=== PATIENT | male | born 1955 | race African-American/Black ===

== ENCOUNTER 2024-01-25 04:09 | Emergency (ER) | payer MEDICARE, MEDICAID ==
[~2024-01-25] VITALS: Ht 175.3 cm; Wt 127.0 kg
[~2024-01-25 04:09] MED LIST: ALBU6.7H15 INH; AMLODIPINE; ATENOLOL; AZIT500T8 PO; FAMO-135 MT; Folic Acid PO; LISI10TA26; MAG355OR21 MT; METF-415; Multivitamins,Ther W-Minerals PO
[2024-01-25] MEDS: GUAIFENESIN 600MG ER TABLET PO SCH (06:29)
[2024-01-25] MEDS ORDERED: GUAI600T44 MT (08:03)
[2024-01-25 08:41] VITALS: PULSE 95; RESP 20; O2SAT 97
[2024-01-25] MEDS: ALBUTEROL (0.083%) 2.5MG/3ML NEB HHN STA (08:41)
[2024-01-25 08:51] VITALS: BP 154/94; PULSE 101; RESP 20; TEMP 98.1
== END 2024-01-25 08:53 | disposition home or self-care (01) ==
LOC: ER 04:09
DX: R05.8 Other specified cough (principal); E11.9 Type 2 diabetes mellitus without complications; I12.0 Hypertensive chronic kidney disease with stage 5 chronic kidney disease or end stage renal disease; N18.6 End stage renal disease
CPT/HCPCS: 71046; 94640; 99283